=== PATIENT | male | born 1985 | race Caucasian/White ===

== ENCOUNTER 2022-10-06 08:45 | Day surgery (SDC) | payer OTHER, SELFPAY ==
--- NOTE | 2022-10-06 | PATH_ITS ---
[facility] Accession Number: [id number] No. of containers..01 Tissue . 01 Material submitted: . duodenum - DUODENAL BIOPSY . 01 Diagnosis: Duodenum, Biopsy: Duodenal mucosa with no diagnostic abnormality. Negative for active inflammation, features of sprue, dysplasia, or malignancy. MRV 10/12/2022 1246 Local . 01 Electronically signed: . Hang Moralez MD, PhD, Pathologist NPI- [id number] . 01 Gross description: . DUODENAL BIOPSY: Received in formalin is 1 fragment(s) of carrasco, soft tissue measuring 0.3 x 0.2 x 0.2 cm submitted entirely in 1 cassette(s) /CPE 10/07/2022 0609 Local . 01 Pathologist provided ICD-10: R12, R19.4 . 01 CPT . 238555 Specimen Comment: A courtesy copy of this report has been sent to [phone] Performed at: 01 [facility] [address] [place] [address] [address], [place], [place] [id number] MD Kirk Bobo MD Phone: [phone]
[2022-10-06] MEDS: LACTATED RINGERS 1,000 ML 100 ML IV (09:13)
[2022-10-06 09:16] VITALS: BP 139/95; PULSE 84; RESP 16; TEMP 36.3; O2SAT 98; BMI 31.3
--- NOTE | 2022-10-06 09:21 | PM.HP.1 ---
History of Present Illness History of Present Illness Chief complaint: EGD/Colonosocpy w/poss bx's Narrative: Congenital hypertrophy of the retina. Rule out Barrett syndrome Exam Narrative Exam Narrative: Oropharynx free of lesions Chest clear to auscultation percussion Cardiac exam reveals no S3 or murmur Assessment & Plan Assessment & Plan narrative: Abnormal ocular findings rule out history of polyps associated with retinal hypertrophy. Need for EGD and colonoscopy. Risks, benefits, alternatives have been explained. Time Spent With Patient Critical Care time: I spent a total of [] minutes of critical care time on this patient's care today; this time is exclusive of procedural time.
--- NOTE | 2022-10-06 09:23 | PM.OP.EC ---
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 Video upper scope was placed into the oropharynx and with the patient's help swallowed into the esophagus. The esophagus stomach and duodenum were carefully examined. On withdrawal retroflexed view the GE junction was performed. The scope was removed. The patient tolerated procedure well. The patient was then turned and the colonoscope substituted. This was inserted into the rectum slowly advanced cecum. Ic valve was identified and intubated. On slow withdrawal mucosa was carefully examined. The scope was removed. The patient tolerated procedure well. Blood loss none Complications none Sedation propofol Findings EGD 1. Esophagus with esophagitis on 2 folds between 35 and 38 cm. Squamocolumnar junction at 38 cm. 2. Normal stomach with no evidence of any polyps 3. Duodenum with irregular folds but no evidence of polyps. Biopsies taken to rule out celiac Colonoscopy 1. Normal colonoscopy to cecum. 2. Normal distal terminal ileum There is no evidence here for FAP or guarding syndrome. Patient does admit to having somewhat infrequent heartburn taking Tums once to twice a week. I suggest that he go on omeprazole 20-40 mg daily and follow up with Dr. Perez within 2-4 weeks. They can then discuss whether to stay on medication and recheck upper endoscopy in 8-12 weeks. Will also get in touch regarding duodenal biopsies which could show signs of celiac disease.
[2022-10-06 10:31] VITALS: BP 129/82; PULSE 87; RESP 13; TEMP 37; O2SAT 96
[2022-10-06 10:36] VITALS: BP 127/88; PULSE 89; RESP 12; TEMP 36.7; O2SAT 96
[2022-10-06 10:41] VITALS: BP 134/94; PULSE 83; RESP 18; TEMP 36.5; O2SAT 97
[2022-10-06 10:46] VITALS: BP 132/90; PULSE 77; RESP 12; TEMP 36.6; O2SAT 97
--- NOTE | 2022-10-06 11:27 | PC.NURSE ---
Dr. Pruett having computer issues and unable to input discharge order. Received verbal order to discharge patient home. Order for patient to take omeprazole 20mp po once daily for 8 weeks and to followup with Dr. Perez in 3-4 weeks. Patient states full understanding of all instructions.
== END 2022-10-06 11:30 | disposition home or self-care (01) ==
PROVIDERS: Referring Provider Internal Medicine Gastroenterology; Visit Provider Internal Medicine Gastroenterology
PROC: 0DJ08ZZ Inspection of Upper Intestinal Tract, Via Natural or Artificial Opening Endoscopic (ICD-10-PCS; CPT 43235; principal; 2022-10-06 10:00)
PROC: 0DJD8ZZ Inspection of Lower Intestinal Tract, Via Natural or Artificial Opening Endoscopic (ICD-10-PCS; CPT 45378; 2022-10-06 10:00)
DX: Z12.11 Encounter for screening for malignant neoplasm of colon (principal); R12 Heartburn; H36 Retinal disorders in diseases classified elsewhere; K20.90 Esophagitis, unspecified without bleeding
CPT/HCPCS: 43239; 45378; J2250; J2704; J3010

== ENCOUNTER 2023-12-22 01:33 | Emergency (ER) | payer OTHER, SELFPAY ==
[2023-12-22] VITALS (8 sets, daily range): BP systolic 121–150; BP diastolic 83–99; PULSE 65–97; RESP 16–17; TEMP 35.9; O2SAT 96–98; BMI 29.4
--- NOTE | 2023-12-22 01:43 | ED.PSYCH ---
HPI - Psych General Chief Complaint: Allergic Reaction Stated Complaint: reaction to medication Time Seen by Provider: 12/22/23 01:37 History of Present Illness HPI Narrative: 38-year-old male with history of anxiety, depression, hypertension presents by private vehicle for possible adverse reaction to medication. Patient was recently started on propranolol and hydroxyzine for anxiety and depression and took his 1st doses yesterday. He states that he broke into cold sweats tonight, could not sleep, and his depression became significantly worse. He was told by his doctor that if it gets worse then he should come to the emergency department for evaluation. Patient is undergoing significant life stressors including divorce, domestic violence charges, possible losing custody of his kids. He states that he does not want to talk to a child protective services social worker due to possible legal implications. Related Data Allergies Allergy/AdvReac Type Severity Reaction Status Date / Time No Known Drug Allergies Allergy Verified 12/22/23 02:04 Review of Systems Review of Systems Narrative: See HPI Patient History Social History household members: spouse alcohol intake frequency: a few times a month Substance Use Type: does not use Exam Initial Vital Signs Initial Vital Signs: Vital Signs Pulse Rate 97 H 12/22/23 01:38 Blood Pressure 144/99 H 12/22/23 01:38 Pulse Oximetry 96 12/22/23 01:38 Const: Awake, alert, no acute distress, nontoxic appearing Cardiac: regular rate, regular rhythm RESP: unlabored, clear bilaterally, no wheezing GI: Soft, nontender, nondistended, no rebound, no guarding MSK: Atraumatic, full range of motion, pulses equal Skin: Warm, Dry, intact, no rashes Neuro: AO x3, CN II-XII grossly intact, moves all extremities Course Orders Ordered: ED Orders 12/22/23 01:52 CBC Auto Diff [Complete Blood Count AUTO DIFF] Stat CMP [Comprehensive Metabolic Panel] Stat Discontinued Medications Diphenhydramine HCl (Diphenhydramine 50 Mg/Ml Vial) 50 mg IV NOW ONE Stop: 12/22/23 01:43 Last Admin: 12/22/23 01:53 Dose: 50 mg Documented By: NEDA Sodium Chloride (Normal Saline 0.9%) 1,000 mls @ 1,000 mls/hr IV BOLUS ONE Stop: 12/22/23 02:41 Last Infusion: 12/22/23 02:48 Dose: Infused Documented By: Admin: 12/22/23 01:55 Dose: 1,000 mls/hr Documented By: Vital Signs Vital signs: Vital Signs - 8 hr 12/22/23 01:38 12/22/23 01:38 12/22/23 01:45 Temperature 96.7 F L Pulse Rate 97 H 93 H Respiratory Rate 16 Blood Pressure 144/99 H 144/99 H Pulse Oximetry 96 96 Oxygen Delivery Method Room Air 12/22/23 02:00 12/22/23 02:00 12/22/23 02:30 Temperature Pulse Rate 81 69 Respiratory Rate Blood Pressure 150/93 H Pulse Oximetry 98 96 Oxygen Delivery Method 12/22/23 02:30 12/22/23 03:00 12/22/23 03:00 Temperature Pulse Rate 72 Respiratory Rate Blood Pressure 143/91 H 135/83 Pulse Oximetry 96 Oxygen Delivery Method Room Air 12/22/23 03:30 12/22/23 03:30 12/22/23 04:00 Temperature Pulse Rate 79 Respiratory Rate 17 16 Blood Pressure 127/83 121/86 Pulse Oximetry 96 Oxygen Delivery Method Room Air 12/22/23 04:00 12/22/23 04:22 Temperature Pulse Rate 65 76 Respiratory Rate 16 Blood Pressure 121/86 Pulse Oximetry 97 98 Oxygen Delivery Method Room Air Room Air MDM - Psych Differential Diagnosis Differential diagnosis: Likely depression, acute anxiety and other (Adverse drug reaction) Lab Data 12/22/23 01:52 12/22/23 01:52 Labs: Lab Results 12/22/23 Range/Units 01:52 WBC 6.6 (4.5-11.0) X10^3/uL RBC 4.91 (4.5-5.9) X10^6/uL Hgb 15.7 (13.5-17.5) g/dL Hct 45.6 (41-53) % MCV 92.9 (80-100) fL MCH 32.0 (26-34) PG MCHC 34.4 (30-36) % RDW 14.2 (11.6-14.8) % Plt Count 231 (150-400) X10^3/uL Neut % (Auto) 64.9 (50-75) % Lymph % (Auto) 25.1 (25-40) % [place] % (Auto) 7.4 (3-14) % Eos % (Auto) 2.4 (2-4) % Baso % (Auto) 0.2 (0-2) % Neut # (Auto) 4300 (6247-7445) /uL Lymph # (Auto) 1700 (2238-3158) /uL [place] # (Auto) 500 (0-900) /uL Eos # (Auto) 200 (0-450) /uL Baso # (Auto) 0 (0-100) /uL Sodium 135 L (137-145) mmol/L Potassium 3.8 (3.4-5.1) mmol/L Chloride 102 (98-107) mmol/L Carbon Dioxide 25 (22-32) mmol/L BUN 13 (9-20) mg/dL Creatinine 0.80 (0.66-1.25) mg/dL Estimated GFR > 60 (>60) mL/min BUN/Creatinine Ratio 16.3 (6-22) Glucose 91 (70-100) mg/dL Calcium 9.2 (8.4-10.2) mg/dL Total Bilirubin 1.4 H (0.2-1.3) mg/dL AST 40 (17-59) IU/L ALT 68 H (<50) IU/L Alkaline Phosphatase 58 (38-126) U/L Total Protein 7.6 (6.3-8.2) g/dL Albumin 4.7 (3.5-5.0) g/dL Globulin 2.9 (1.7-4.1) g/dL Albumin/Globulin Ratio 1.6 (1.0-2.8) MDM Narrative Medical decision making narrative: Well-appearing patient with possible adverse reaction to propranolol. He states that his reaction is worsening depression, cold sweats, and sleep loss. He was in no acute distress, lungs are clear to auscultation, he was not diaphoretic, not tachycardic, there is absolutely no evidence whatsoever of anaphylaxis or true allergic reaction. He reports significant stressors in his life and I question if this has some component in his reaction tonight. Basic medical work ordered and IV Benadryl ordered. Laboratory work unremarkable, patient reassessed, sleeping in bed, no acute distress. Patient relieved to know that his lab work looks normal. I recommended stopping propranolol if this gave him an adverse reaction but to continue to take the hydroxyzine. He was encouraged to follow up with his [place] doctor about potential options moving forward to help him with his anxiety and depression. Discharge Plan Departure Patient Disposition: Home Clinical Impression: Adverse reaction to drug Instructions: DI for Anxiety -- Adult Activity Restrictions/Additional Instructions: Your labs today were normal. If the medications prescribed are making your anxiety and depression worse then I recommend no longer taking them. Please follow up with your [place] doctor about additional options you may take for your anxiety. Referrals: Kevin Sky [Primary Care Provider] - Stand Alone Forms: Patient Portal/API
[2023-12-22] MEDS: diphenhydrAMINE 50 MG/ML VIAL IV (01:53)
[2023-12-22] MEDS: SODIUM CHLORIDE 0.9% 1,000 ML 1000 ML IV (01:55)
[2023-12-22 02:01] LABS: Add Manual Diff / Slide Review NO; Basophils Absolute Auto 0 /uL (0-100); Basophils Percent Auto 0.2 % (0-2); Eosinophils Absolute Auto 200 /uL (0-450); Eosinophils Percent Auto 2.4 % (2-4); Hematocrit 45.6 % (41-53); Hemoglobin 15.7 g/dL (13.5-17.5); Lymphocytes Absolute Auto 1700 /uL (1100-4500); Lymphocytes Percent Auto 25.1 % (25-40); Mean Corpuscular HGB Conc 34.4 % (30-36); Mean Corpuscular Volume 92.9 fL (80-100); Monocytes Absolute Auto 500 /uL (0-900); Monocytes Percent Auto 7.4 % (3-14); Neutrophils Absolute Auto 4300 /uL (1500-7000); Neutrophils Percent Auto 64.9 % (50-75); Platelet Count 231 X10^3/uL (150-400); Red Blood Cell Count 4.91 X10^6/uL (4.5-5.9); Red Cell Distribution Width 14.2 % (11.6-14.8); White Blood Cell Count 6.6 X10^3/uL (4.5-11.0)
[2023-12-22 02:13] LABS: Alanine Aminotransferase 68 IU/L (<50); Albumin 4.7 g/dL (3.5-5.0); Albumin Globulin Ratio 1.6 (1.0-2.8); Alkaline Phosphatase 58 U/L (38-126); Aspartate Aminotransferase 40 IU/L (17-59); BUN Creatinine Ratio 16.3 (6-22); Bilirubin Total 1.4 mg/dL (0.2-1.3); Blood Urea Nitrogen 13 mg/dL (9-20); Calcium 9.2 mg/dL (8.4-10.2); Carbon Dioxide 25 mmol/L (22-32); Chloride 102 mmol/L (98-107); Estimated Glomerular Filt Rate > 60 mL/min (>60); Globulin 2.9 g/dL (1.7-4.1); Glucose 91 mg/dL (70-100); HEMOLYSIS < 15 (0-50); Potassium 3.8 mmol/L (3.4-5.1); Sodium 135 mmol/L (137-145); Total Protein 7.6 g/dL (6.3-8.2)
== END 2023-12-22 04:25 | disposition home or self-care (01) ==
PROVIDERS: Emergency Provider Emergency Medicine
DX: R61 Generalized hyperhidrosis (principal); F32.A Depression, unspecified; T44.7X5A Adverse effect of beta-adrenoreceptor antagonists, initial encounter
CPT/HCPCS: 36415; 80053; 85025; 96374; 99284; J1200